=== PATIENT | male | born 1965 | race Caucasian/White ===

== ENCOUNTER 2018-08-08 19:39 | Inpatient (IN) | payer MEDICARE, MEDICAID ==
[~2018-08-08] VITALS: Ht 121.9 cm; Wt 117.5 kg
--- NOTE | ~2018-08-08 | CON ---
[facility] [address] [place] [address] CONSULTATION Name: ASHLEY ROBLES Room: [address] ADM IN M.R.#: [id number] Admission: 08/08/18 Attend Phys: Gary Herrera, Discharge: Date of : 61 Report #: [id number] THIS REPORT FOR: //name// CC: Crispin Herrera DATE OF SERVICE: 08/09/2018 TYPE OF REPORT: Nephrology consultation. CONSULTING PHYSICIAN: Gary Herrera M.D. REASON FOR NEPHROLOGY CONSULTATION: History of renal transplant, acute kidney injury, presenting with STEMI. CHIEF COMPLAINT: Chest pain. HISTORY OF PRESENT ILLNESS: This is a 53-year-old male who has a past medical history of bilateral lower extremity amputation, history of hypertension, history of end-stage renal disease, status post donor renal transplant. This was done in October of last year at [facility], he follows with [facility] with multiple MIs in the past with stent placements; came in with crushing chest pain, diagnosed with STEMI. 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 He was hypoxic this morning, needing 15 liters of oxygen, received one dose of Lasix IV. I's and O's cannot be documented accurately. His external catheter has been leaking and he is not wanting a Franklin catheter. He is drowsy but easily arousable. He has been hemodynamically stable. ALLERGIES: No known drug allergies. REVIEW OF SYSTEMS: As mentioned in history of present illness and now, he is not having any chest pain and he feels much better. He is just very tired and sleepy. Otherwise, 10-point review of systems are negative. PAST MEDICAL AND SURGICAL HISTORY: From what I can gather, he has been on peritoneal dialysis, had a peritoneal dialysis catheter. Then, he had hemodialysis with a left arm AV fistula and then he had a transplant donor in October of last year, history of coronary artery disease and history of hypertension. CURRENT HOME MEDICATIONS: Include calcitriol, sodium bicarbonate, prednisone 5 mg a day, amlodipine 10 mg a day, gabapentin 100 mg 3 times a day, tacrolimus 0.5 mg in the morning and 1 mg in the evening, carvedilol 12.5 mg b.i.d., pantoprazole 40 mg daily, tamsulosin 0.4 mg daily, pramipexole, atorvastatin, [place] [address] CONSULTATION Name: ASHLEY ROBLES Room: [address] IN ..#: [id number] Admission: 08/08/18 Attend Phys: Gary Herrera, Discharge: Date of : 61 Report #: [id number] escitalopram, mycophenolate sodium, Myfortic 360 mg twice a day, ticagrelor, fluticasone, calcium carbonate 1 gram t.i.d., albuterol, aspirin, nitroglycerin and magnesium oxide 400 mg twice a day. Not sure of the whole list of medications is accurate, but I did confirm his immunosuppressive medications with him and he also takes calcium and magnesium oxide as described above. He is on calcium carbonate 3 times a day. FAMILY HISTORY: That was reviewed from the patient's chart. No significant family history documented. SOCIAL HISTORY: He does smoke 1-1/2 packs a day. No history of chronic alcohol use documented. He uses alcohol socially. No illicit drug use documented. PHYSICAL EXAMINATION: VITAL SIGNS: Blood pressure is 120/56 and he is on 15 liters of oxygen with pulse ox of 96, respiratory rate is 21, pulse rate is 74 and he is afebrile. GENERAL: He is drowsy, but easily arousable. He is oriented x 3. HEAD AND EYES: Atraumatic and normocephalic. Mucous membranes are moist. NECK: There is no JVD. EARS, NOSE, AND THROAT: Mucous membranes are moist. CHEST: Bilaterally anteriorly coarse breath sounds, but no crackles or wheezing heard. CARDIOVASCULAR SYSTEM: S1 and S2 normal. No murmurs. ABDOMEN: Obese, otherwise soft and nondistended and bowel sounds are diminished. EXTREMITIES: Bilateral above-knee amputation and there is no edema noted. NEUROLOGICAL FUNCTION: Gross neurological function is intact. PSYCHIATRIC: Mood and affect seems to be normal. LABORATORY DATA: WBC is 14.8, hemoglobin is 11.9 and platelet count is 304. Creatinine was 1.5 and was 1.7 on presentation. AST 627. CK 5220. ALT 91. Troponin more than 200 this morning. Other labs were reviewed. Magnesium was 1.5. Calcium was 7.2. This was uncorrected calcium. IMAGING DATA: Chest x-ray was reviewed. ASSESSMENT: 1. Acute kidney injury, on chronic kidney disease; history of donor renal transplant in October of last year, acute kidney injury and is in the setting of acute myocardial infarction, creatinine 1.7 on presentation. He also has some rhabdomyolysis with a CK of 5220. 2. History of donor renal transplant in October of last year, on chronic immunosuppressive treatment, follows with Dr. Escalera's group, [facility]. 3. Elevated transaminases. [address] [address] CONSULTATION Name: ASHLEY ROBLES Room: [address] ADM IN M.R.#: [id number] Admission: 08/08/18 Attend Phys: Gary Herrera, Discharge: Date of : 61 Report #: [id number] 4. Hypomagnesemia. 5. Hypocalcemia. 6. ST-elevation myocardial infarction status post 5 stents placement, last night and it seems that there is plan for taking him back to the slab miller operator. We will be monitoring her for contrast-induced nephropathy. Cardiology notes are not in yet. 7. Acute respiratory failure. It seems like because of his body habitus, he does have sleep apnea. His chest x-ray also looks slightly wet. He has received one dose of Lasix this morning. PLAN: 1. Continue to monitor kidney function, check transplant kidney ultrasound. 2. I have reordered his immunosuppressive medications that he takes at home. 3. Magnesium and calcium were replaced. 4. Tacrolimus level to be checked tomorrow. 5. Maintain MAP of around 70. 6. Obtain records from his outpatient automatic shirring machine operator, but according to the patient, his creatinine mostly runs around 1.1. 7. Check a bladder scan q. 6 hours and if he is found to be retaining more than 300 mL of urine then he may need a Franklin. 8. We will follow him for any developing contrast-induced nephropathy. 9. We will continue to follow along with you. 10. Also, we would recommend probably pulmonary evaluation because I do not think that he needs BiPAP to help with his breathing. Discussed with the patient and the patient's nurse and more than 40 minutes of critical care time spent in chart review, examination, placing orders and care coordination. By: [id number] Lopez MD /nt
[2018-08-08 19:53] VITALS: BP 130/75
[2018-08-08 20:09] LABS: HEMATOCRIT 42.8 % (42.0-52.0); HEMOGLOBIN 13.9 gm/dL (14.0-18.0); MCH 27.5 pg (26.0-34.0); MCHC 32.4 g/dL (28.0-37.0); MCV 84.9 fL (80.0-100.0); MPV 7.8 fl. (7.2-11.1); NUCLEATED RBCS 0 /100WBC; PLATELET COUNT* 329 thou/uL (150-400); RBC 5.05 mil/uL (4.50-6.00); WBC 11.7 thou/uL (4.0-11.0)
[2018-08-08 20:15] LABS: APTT 27.4 Seconds (25.0-31.3); INR 0.9; PROTIME 9.5 Seconds (9.20-11.50)
[2018-08-08 20:19] VITALS: BP 110/68
[2018-08-08 20:19] LABS: ANION GAP 13 mmol/L (7-16); BUN 27 mg/dL (7-18); CHLORIDE 106 mmol/L (98-107); CO2 22 mmol/L (21-32); CREATININE 1.7 mg/dL (0.6-1.3); GLUCOSE 200 mg/dL (70-99); POTASSIUM 4.1 mmol/L (3.5-5.1); SODIUM 141 mmol/L (136-145)
[2018-08-08 20:27] LABS: ABSOLUTE LYMPHOCYTES 0.7 thou/uL (0.8-5.3); PLATELET ESTIMATE ADEQUATE
[2018-08-08 20:29] LABS: ALBUMIN 3.2 g/dL (3.4-5.0); ALKALINE PHOSPHATASE 112 U/L (46-116); CHOLESTEROL 148 mg/dL (<200); HDL CHOLESTEROL 31 mg/dL (>40); LDL CHOLESTEROL 61 mg/dL (<100); MAGNESIUM 1.6 mg/dL (1.8-2.4); SERUM ASSESSMENT Clear; SGOT 11 U/L (15-37); SGPT 20 U/L (30-65); TC:HDL 4.8 Ratio (Not establshd); TOTAL BILIRUBIN 0.3 mg/dL (<0.1-1.0); TRIGLYCERIDE 284 mg/dL (<150); TROPONIN-I LEVEL <0.06 ng/mL (<0.06); VLDL 57 mg/dL (<40)
[2018-08-09] VITALS (21 sets, daily range): BP systolic 111–180; BP diastolic 51–100
[2018-08-09] MEDS ORDERED: CALCITRIOL0.25 MCG PO (00:02)
[2018-08-09] MEDS ORDERED: ANTACID650 MG PO (00:03)
[2018-08-09] MEDS ORDERED: PREDNISONE 5 MG5 M1 PO (00:03)
[2018-08-09] MEDS ORDERED: AMLODIPINE BESY10 MG PO (00:04)
[2018-08-09] MEDS ORDERED: SULFAMETHOXAZO1 EACH PO (00:04)
[2018-08-09] MEDS ORDERED: GABAPENTIN 100100 MG PO (00:05)
[2018-08-09] MEDS ORDERED: TACROLIMUS1 MG PO (00:08)
[2018-08-09] MEDS ORDERED: CARVEDILOL12.5 MG PO (00:11)
[2018-08-09] MEDS ORDERED: PROTONIX40 M1 PO (00:14)
[2018-08-09] MEDS ORDERED: FLOMAX0.4 MG PO (00:30)
[2018-08-09] MEDS ORDERED: ESCITALOPRAM OX10 MG PO (00:31)
[2018-08-09] MEDS ORDERED: PRAMIPEXOLE DI0.5 MG PO (00:31)
[2018-08-09] MEDS ORDERED: LIPITOR80 MG PO (00:31)
[2018-08-09] MEDS ORDERED: MYFORTIC360 MG PO (00:32)
[2018-08-09] MEDS ORDERED: BRILINTA90 MG PO (00:32)
[2018-08-09] MEDS ORDERED: BREO ELLIPTA 11 EACH INH (00:35)
[2018-08-09] MEDS ORDERED: CALCIUM ANTACI200 MG PO (00:35)
[2018-08-09] MEDS ORDERED: ALBUTEROL2.5 MG/31 INH (00:36)
[2018-08-09] MEDS ORDERED: ASPIRIN81 M2 PO (00:36)
[2018-08-09] MEDS ORDERED: NITROGLYCERIN0.4 MG SUBLING (00:43)
[2018-08-09] MEDS ORDERED: PROGRAF1 MG PO (00:45)
[2018-08-09] MEDS ORDERED: TYLENOL EXTRA500 MG PO (00:46)
[2018-08-09] MEDS ORDERED: MAGOX 400400 MG PO (00:47)
--- NOTE | 2018-08-09 04:22 | NUR ---
ADMITTED TO ICU BED 6 AT 2251 FROM PILL MAKER, SEE ASSESSMENTS. PER PILL MAKER RN, ONE OF THE THREE SITES NEEDING STENTED COULD NOT BE PERFORMED DUE TO HIGH DOSE OF CONTRAST PT HAD RECEIVED. PT HAD KIDNEY TRANSPLANT 10/2017. SPOKE TO DR STEWART, INFORMED OF CONTRAST DOSE, ORDER RECEIVED TO RESTART PTS ANTIREJECTION DRUGS AND CONTINUE IVF AT 100ML/HR X8HR. PER PILL MAKER RN, DIFFICULTY OBTAINING ACCESS FOR CATH. 1ST ATTEMPT R GROIN, SITE OOZING BLOOD, CLEANED AND DRESSING APPLIED. 2ND ATTEMPT R RADIAL, TRANSPARENT DRESSING WITH DRIED DRAINAGE. 3RD ATTEMPT L GROIN, ARTERIAL LINE SET UP PER ORDERS, DRESSING WITH SMALL AMOUNT SS DRAINAGE. ORDER TO REMOVE SHEATH AT 0030, HOWEVER PT HAS BUE DIALYSIS FISTULAS AND BLE AKA, LIMITING NIBP SITES. PER VALARIE, COMPLIANCE ENGINEER [employer]ODUCTS, WILL LEAVE SHEATH IN PLACE FOR ART LINE BP MONITORING AND HAVE PILL MAKER RN REMOVE SHEATH DURING DAY. PT C/O CHEST PAIN 7-9/10 CONTINUOUSLY FROM TIME OF ARRIVAL ON UNIT, EKG OBTAINED. CALL PLACED TO DR STEWARD, STATED HE DOES NOT KNOW THE PATIENT AND THAT DR SANTANA SHOULD BE CALLED IF CP NOT CONTROLLED AFTER MORPHINE ADMINISTERED ORDERED. ONE DOSE GIVEN WITH PARTIAL RELIEF OF CP, PT ABLE TO SLEEP. APPROXIMATELY 0215 PT NOTED TO HAVE GRADUALLY DECREASING SAT TO 89-90% DESPITE INCREASE OF O2 TO 4L. LUNGS COARSE AND WHEEZES. PER DR COBIAN, LASIX IVP GIVEN X1. PT TITRATED TO 15L HFNC AT THIS TIME. PT INCONTINENT OF MODERATE AMOUNT URINE.
[2018-08-09 05:29] LABS: HEMATOCRIT 37.2 % (42.0-52.0); HEMOGLOBIN 11.9 gm/dL (14.0-18.0); MCH 27.4 pg (26.0-34.0); MCV 85.7 fL (80.0-100.0); MPV 7.9 fl. (7.2-11.1); RBC 4.34 mil/uL (4.50-6.00); RDW-CV 16.1 % (10.5-14.5); WBC 14.8 thou/uL (4.0-11.0)
[2018-08-09 06:02] LABS: ALBUMIN 2.8 g/dL (3.4-5.0); CALCIUM 7.2 mg/dL (8.5-10.1); CREATININE 1.5 mg/dL (0.6-1.3); POTASSIUM 4.5 mmol/L (3.5-5.1); TOTAL BILIRUBIN 0.4 mg/dL (<0.1-1.0); TOTAL PROTEIN 5.7 g/dL (6.4-8.2)
[2018-08-09 06:29] LABS: TROPONIN-I LEVEL > 200.00 ng/mL (<0.06)
--- NOTE | 2018-08-09 10:23 | EKG ---
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
--- NOTE | 2018-08-09 10:25 | EKG ---
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 : 1965 Requested By: Crispin Hector Order Number: [id number] Reading MD: Jeovanny Hsu Measurements Intervals Franklin Rate: 72 P: 51 TN: 244 QRS: -38 QRSD: 100 T: 59 QT: 424 QTc: 465 Interpretive Statements Sinus rhythm Prolonged TN interval Inferior infarct, acute (RCA) Probable anterolateral infarct, old Probable RV involvement, suggest recording right precordial leads Baseline wander in lead(s) V4 Electronically Signed On 08-09-2018 10:25:32 CDT by Jeovanny Hsu [email or web address] <ELECTRONICALLY SIGNED> By: Jeovanny Hsu MD, FACC 08/09/18 1025 2351 2351 Jeovanny Hsu MD, [facility] /EPI
--- NOTE | 2018-08-09 10:28 | EKG ---
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
--- NOTE | 2018-08-09 13:01 | NUR ---
Nutrition: pt with class III morbid obesity, however also noted to have Bilat AKA. Hx of kidney transplant, HD. Albumin 2.8, RFT's elevated. S/p multiple stent placements. Pt reviewed during ICU rounds this am, was on BIPAP, did not take breakfast. Assess at mild nutrition risk.
--- NOTE | 2018-08-09 16:06 | 2DMMODE ---
[place] [address] 2 D/M-MODE ECHOCARDIOGRAM Name: ASHLEY ROBLES Room: 006[facility] IN [facility]#: [id number] Admission: 08/08/18 Attend Phys: Gary Adhikari Discharge: Date of : 61 Date of Service: 08/09/18 1606 Report #: [id number] THIS REPORT FOR: //name// APPROVED REPORT Study performed: 08/09/2018 14:41:38 EXAM: Comprehensive 2D, Doppler, and color-flow Echocardiogram Patient Location: In-Patient Room #: 006 Status: routine BSA: 1.77 HR: 80 bpm BP: 149/62 mmHg Rhythm: NSR Other Information Study Quality: Technically Difficult Technically limited study due to body habitus, poor endocardial definition. Indications Acute IN 2D Dimensions IVSd: 18.02 (7-11mm) LVOT Diam: 22.78 (18-24mm) LVDd: 49.27 mm PWd: 14.30 (7-11mm) LVDs: 33.02 (25-40mm) Aortic Root: 38.98 mm Aortic Valve AoV Peak Dewey.: 2.67 m/s AO Peak Gr.: 28.53 mmHg LVOT Max P.02 mmHg AO Mean Gr.: 18.20 mmHg LVOT Mean P.70 mmHg LVOT Max V: 0.87 m/s AO V2 VTI: 44.93 cm LVOT Mean V: 0.61 m/s MEL (VTI): 1.43 cm2 LVOT V1 VTI: 15.72 cm Left Ventricle The left ventricle is normal size. Moderate hypokinesis of the apical and inferior wall Moderate concentric left ventricular hypertrophy. Left ventricular systolic function is mildly decreased. LVEF is 45-50%. This study is not technically sufficient to allow evaluation of the LV [place] [address] 2 D/M-MODE ECHOCARDIOGRAM Name: MARGARETASHLEY STEVE Room: [address] IN .R.#: [id number] Admission: 08/08/18 Attend Phys: Gary Adhikari Discharge: Date of : 61 Date of Service: 08/09/18 1606 Report #: [id number] Right Ventricle The right ventricle is normal size. The right ventricular systolic function is normal. Atria The left atrium size is normal. The right atrium size is normal. Aortic Valve Mild aortic valve sclerosis. No aortic regurgitation is present. Mild aortic stenosis. Mitral Valve There is mitral annular calcification. There is no mitral valve regurgitation noted. No evidence of mitral valve stenosis. Tricuspid Valve Tricuspid valve is not well visualized. Trace tricuspid regurgitation. Unable to assess PA pressure. Pulmonic Valve Pulmonic valve is not well visualized. There is no pulmonic valvular regurgitation. Great Vessels Aortic root is mildly dilated. IVC is normal in size and collapses >50% with inspiration. Pericardium There is no pericardial effusion. <Conclusion> Moderate hypokinesis of the apical and inferior wall LVEF is 45-50%. Mild aortic stenosis. Moderate concentric left ventricular hypertrophy. <ELECTRONICALLY SIGNED> By: Jeovanny Hsu MD, [facility] 08/09/18 1606 1606 1606 Jeovanny Hsu MD, FACC /INF
--- NOTE | 2018-08-09 16:21 | CARD ---
[address] [address] CARDIAC CATH REPORT Name: ASHLEY ROBLES Room: [address] IN M.R.#: [id number] Admission: 08/08/18 Attend Phys: Gary Herrera, Discharge: Date of : 61 Report #: [id number] THIS REPORT FOR: //name// APPROVED REPORT Study performed: 08/08/2018 19:48:28 Patient Details Patient Status: ED Room #: The patient is a 53 year-old male Event Personnel Crispin Hector Asset Protection Greeter, Mary Carmen Benito RN RN, Cullen Ariza Langston, Anthony ARRT (R) Monitor Procedures Performed GRACY Place w/wo Plasty Single CIRC, GRACY Place w/wo Plasty Single RCA Indication STEMI (>0 to less than or equal to 6 hours), Dyspnea Risk Factors Obesity, Peripheral Vascular Disease, Chronic Lung DiseaseHypercholesterolemia, Coronary Artery DiseaseHypertension, Tobacco History (), Dialysis Previous Procedures/Diagnoses Previous PCI, Previous MT Procedure Narrative A 6fr Ultimum Sheath sheath was inserted into the left femoral artery. Coronary angiography was performed using coronary diagnostic catheters. The right coronary system was accessed and visualized with a Diagnostic JR4` catheter. The left coronary system was accessed and visualized with a Diagnostic JL4 catheter. The patient tolerated the procedure well and there were no complications associated with the procedure. Sheath was sutured in to be pulled at a later time. There was difficulty in accessing his arterial system due to history of PVD with bilateral AKA, obesity, chronic renal disease with AV fistulas in both upper extremities. Intraoperative Conscious Sedation Fentanyl [address] [facility] [address] [place] [address] CARDIAC CATH REPORT Name: ASHLEY ROBLES Room: [address] IN [facility].#: [id number] Admission: 08/08/18 Attend Phys: Gary Herrera, Discharge: Date of : 61 Report #: [id number] No Sedation Given Fluoro Time: 35.1 minutes Dose: DAP [id number] cGycm2 6544 mGy Contrast Type and Amount: Visipaque 500 ml Coronary Angiography The patient's coronary anatomy is co- dominant. Diagnostic Cath Left Main This is a patent vessel, with no flow-limiting lesions. LAD The LAD is a moderate size caliber vessel, traversing the anterior wall and terminating at the apex. There is mild diffuse disease in the midsegment. Diagonal 1 This is a moderate size caliber vessel, patent with mild disease. Circumflex This is a codominant vessel with a severe stenosis of 90% in the proximal segment with a filling defect. This stenosis is at the bifurcation of the first OM. OM1 There are multiple stents in the proximal and mid segments of this vessel. There is a total occlusion within the stents. The distal segment is a small-caliber vessel and is filled via collateral circulation. OM2 This is a patent vessel, with no flow-limiting lesions. OM3 This is a patent vessel, with no flow-limiting lesions. Right Coronary The RCA has multiple stents in the mid and distal segments. There is a total occlusion in the distal RCA stents. Left Ventriculography Left Ventriculography was not performed. Hemodynamics The aortic pressure is 140/65 mmHg with a mean of 71 mmHg. PCI Technique Lesion Anticoagulation was achieved with Angiomax. Patient was preloaded with Angiomax IV 16 ml. Percutaneous coronary intervention was performed on the distal right coronary artery. The lesion stenosis prior to intervention was 100% with LUCINDA 0 flow. A 6F JR 4.0 Guide Catheter was used to engage the ostium. A [email or web address]: Luge Wire 180 Interventional Guidewire was used to cross the lesion. BALLOON DILATION A Balloon catheter Trek RX 2.5 X 12 [place] [address] CARDIAC CATH REPORT Name: ASHLEY ROBLES Room: [address] IN [facility]#: [id number] Admission: 08/08/18 Attend Phys: Gary Herrera, Discharge: Date of : 61 Report #: [id number] 10.00atm for 11seconds. Additional Inflation: 10.00atm for 10seconds. Additional Inflation: 12.00atm for 14seconds. STENT DEPLOYMENT A drug-eluting stent Xience Fabby 2.24Z04ys was inserted and inflated up to 20.00atm for 16seconds. POST STENT DEPLOYMENT BALLOON DILATION A Balloon catheter NC Trek RX 3.25 X 12 was inserted and inflated up to 20.00atm for 13seconds. Additional Inflation: 20.00atm for 9seconds. Additional Inflation: 20.00atm for 12seconds. Final angiography reveals 5 % stenosis with LUCINDA 3 flow. STENT DEPLOYMENT A drug-eluting stent Xience Fabby 3.0X18mm was inserted and inflated up to 18.00atm for 21seconds. Additional Inflation: 8.00atm for 12seconds. PCI Technique Lesion 2 Percutaneous Coronary Intervention was performed on the proximal right coronary artery. Patient was preloaded with Angiomax IV 16 ml. Percutaneous coronary intervention was performed on the proximal right coronary artery. A 6F JR 4.0 Guide Catheter was used to engage the ostium. A IG: Luge Wire 180 Interventional Guidewire was used to cross the lesion. Balloon Dilation A Balloon catheter Trek RX 3.0 X 15 was inserted and inflated up to 14.00atm for 12seconds. Additional Inflation: 18.00atm for 13seconds. Stent Deployment A drug-eluting stent Xience Fabby 3.03A27lv was inserted and inflated up to 20.00atm for 13seconds. Comments While attempting to pass a stent into the original occlusion in the distal segment of the RCA, there was evidence for dissection in the proximal segment from the guide catheter. The dissection was flow-limiting, requiring placement of overlapping stents in the proximal and ostial RCA. PCI Technique Lesion Anticoagulation was achieved with Angiomax. Patient was preloaded with Angiomax IV 16 ml. Percutaneous coronary intervention was [address] [address] CARDIAC CATH REPORT Name: ASHLEY ROBLES Room: 006-[facility] IN M.R.#: [id number] Admission: 08/08/18 Attend Phys: Gary Arias Javier, Discharge: Date of : 61 Report #: [id number] performed on the proximal right coronary artery. A 6F JR 4.0 Guide Catheter was used to engage the ostium. A IG: Luge Wire 180 Interventional Guidewire was used to cross the lesion. STENT DEPLOYMENT A drug-eluting stent Xience Fabby 4.0X15mm was inserted and inflated up to 18atm for 13seconds. The stent was placed at the ostium of the RCA. PCI Technique Lesion 3 Percutaneous Coronary Intervention was performed on the proximal circumflex artery segment. Patient was preloaded with Angiomax IV 16 ml. Percutaneous coronary intervention was performed on the proximal circumflex artery segment. A 6FR XB 3.5 100CM Guide Catheter was used to engage the ostium. A IG: Luge Wire 180 Interventional Guidewire was used to cross the lesion. Balloon Dilation A Balloon catheter Trek RX 3.0 X 12 was inserted and inflated up to 14.00atm for 17seconds. Additional Inflation: 14.00atm for 11seconds. Stent Deployment A drug-eluting stent Xience Fabby 3.83R87dg was inserted and inflated up to 12.00atm for 13seconds. Additional Inflation: 18.00atm for 9seconds. Post Stent Deployment Balloon Dilation A Balloon catheter NC Trek RX 3.5 X 8 was inserted and inflated up to 18.00atm for 17seconds. Final angiography reveals 5 % stenosis with LUCINDA 3 flow. Conclusion 1. Successful insertion of drug-eluting stents into the total occlusion in the RCA. 2. Successful insertion of a drug-eluting stent into the proximal left circumflex artery. 3. There is a total occlusion in the stents in OM1. The distal OM1 is a small-caliber vessel and is filled via collateral circulation. Recommend medical therapy. 4. There [place] [address] CARDIAC CATH REPORT Name: ASHLEY ROBLES Room: [address] IN M.R.#: [id number] Admission: 08/08/18 Attend Phys: Gary Herrera, Discharge: Date of : 61 Report #: [id number] 5. Recommend dual antiplatelet therapy and aggressive risk factor management. <ELECTRONICALLY SIGNED> By: Crispin Hector MD 08/09/18 1620 1620 1620Crispin Hector MD /INF
--- NOTE | 2018-08-09 17:20 | NUR ---
PHONE NUMBER FOR PT'S OUTPATIENT [facility] GIVEN TO [facility]. ATTEMPTED TO CALL BUT THE OFFICE WAS CLOSED. SPOKE WITH [facility] AFTER HOUR SERVICE UNIT OPERATOR [employer] THAT TOOK ALL OF THE PATIENT'S INFO. INSTRUCTED TO CALL BACK WITH MEDICAL RECORD NUMBER SO WE CAN REQUEST LAST OFFICE NOTES AND LABS. PT WAS UNSURE WHICH DOCTOR HE VISITS WITH, HE SAYS HE HAS SEEN ALL OF THEM. PHONE CALL WAS PLACED FOR DR. EVY SANCHEZ MD. THIS INFORMATION WAS REPORTED TO THE ONCOMING NURSE. PHONE NUMBER: [phone]
--- NOTE | 2018-08-09 19:53 | NUR ---
PT ASSESSMENT CHARTED. VSS THROUGHOUT THE DAY. CATH SITES C,D&I. BRUISING IN BOTH GROIN SITES. PT VERY DROWSY THIS MORNING AND HARD TO KEEP AWAKE. PT ON 15L HIGH FLOW. SWITCHED TO BIPAP FOR A FEW HOURS AND PT WAS MORE ALERT, EATING WITHOUT DIFFICULTY. PT PLACED ON 6L NC AFTER BIPAP TAKEN OFF AND APPEARS TO BE TOLERATING WELL. PAIN RATED 6/10 GENERALIZED RELIEVED WITH PRN PAIN MEDICATION. NO OTHER COMPLAINTS. PT LIKES TO SIT UP IN BED AND REFUSES TURNS. UROLOGY CONSULT PUT IN FOR CATHETER PLACEMENT. ATTEMPT X2 THIS MORNING TO PLACE BY NURSING STAFF. 18 GEORGIAN COUDE INSERTED AND IS DRAINING DARK YELLOW URINE.
[2018-08-10 04:59] LABS: ALBUMIN 2.7 g/dL (3.4-5.0); CALCIUM 7.3 mg/dL (8.5-10.1); CREATININE 1.5 mg/dL (0.6-1.3); DIRECT BILIRUBIN 0.1 mg/dL (<0.1-0.3); MAGNESIUM 1.9 mg/dL (1.8-2.4); TOTAL BILIRUBIN 0.4 mg/dL (<0.1-1.0); TOTAL PROTEIN 5.9 g/dL (6.4-8.2)
--- NOTE | 2018-08-10 08:09 | NUR ---
VSS. PT HAS DENIED CHEST PAIN THROUGH THE NIGHT. PT C/O SEVERE PAIN AT URINARY CATHETER. ORDER OBTAINED TO RESTART HOME FLOMAX DOSE, START PRN PYRIDIUM, AND APPLY LIDOCAINE JELLY ALL OF WHICH WERE DONE ORDERED WITH PARTIAL RELIEF. AT 0600 PT STATED THAT HE COULD NOT TAKE THE PAIN ANY LONGER AND WANTED THE CATHETER REMOVED OR HE WOULD REMOVE IT HIMSELF. DR GRACE PAGED AT 0600. COMPLETE BED BATH GIVEN WHILE AWAITING RETURN CALL. AT 0645 PT AGAIN STATED HE COULD NOT TAKE THE PAIN ANY LONGER, CATHETER REMOVED BY THIS RN AFTER WHICH PT REPORTED IMMEDIATE RELIEF. RETURN CALL RECEIVED FROM DR GRACE AT 0745, INFORMED OF EVENTS AND REMOVAL OF CATHETER, NO NEW ORDERS.
--- NOTE | 2018-08-10 09:47 | CON ---
[address] [address] CONSULTATION Name: ASHLEY ROBLES Room: [address] IN M.R.#: [id number] Admission: 08/08/18 Attend Phys: Gary Herrera, Discharge: Date of : 61 Report #: [id number] THIS REPORT FOR: //name// CC: Crispin Herrera DATE OF SERVICE: 08/08/2018 TYPE OF REPORT: Cardiology consultation. INSTITUTION: [facility]. INDICATION: Chest pains. HISTORY OF PRESENT ILLNESS: This is a 53-year-old gentleman presenting with acute onset of substernal chest pain less than 1 hour prior to presentation in the ER. The patient developed sudden chest pains, dizziness and dyspnea and 911 was called. Upon EMS arrival, an ECG revealed ST elevation on his ECG and a STEMI activation was called. He denies any history of fever, nausea or vomiting. He has had prior MIs with multiple stents. He has got a history of peripheral vascular disease with remote history of bilateral AKA. He has also had end-stage renal disease, on hemodialysis but underwent a renal transplant about a year ago at [facility]. He usually gets all of his medical care at [facility] in [facility]. History of hypertension. He has also chronic tobacco use, longstanding. PAST MEDICAL HISTORY: As above. MEDICATIONS: None. MEDICATIONS: Please see the MAR for full list. SOCIAL HISTORY: Continues to smoke one and half pack of cigarettes per day. FAMILY HISTORY: Unremarkable. REVIEW OF SYSTEMS: Unobtainable. PHYSICAL EXAMINATION: VITAL SIGNS: Blood pressure is 110/60 and heart rate is 95 beats per minute. GENERAL APPEARANCE: This is an overweight male, in mild distress. HEENT: Normocephalic and atraumatic. Oral mucosa moist. NECK: [place] [address] CONSULTATION Name: ASHLEY ROBLES Room: [address]#: [id number] Admission: 08/08/18 Attend Phys: Gary Herrera, Discharge: Date of : 61 Report #: [id number] LUNGS: Clear to auscultation. CARDIAC: Regular rate and rhythm. S1 and S2 positive. ABDOMEN: Protuberant, soft and nontender. EXTREMITIES: Bilateral AKA. RADIOLOGICAL DATA: ECG reveals sinus rhythm with ST-elevation in the inferolateral leads. LABORATORY VALUES: Pending. ASSESSMENT AND PLAN: 1. Acute inferolateral myocardial infarction. The patient was given heparin, aspirin and nitroglycerin in the Emergency Room. The plan is to take the patient emergently to the Cardiac Medical Administrative Technician. 2. Hypertension, continue the same medications. 3. Tobacco use, complete smoking cessation is advised. 4. Hypercholesterolemia, continue statin. 5. History of renal transplant, we will need to resume his transplant medications. Obtain a Nephrology consultation. <ELECTRONICALLY SIGNED> By: Crispin Hector MD 08/10/18 0947 [id number] Hector MD /nt
[2018-08-10 09:53] VITALS: BP 132/34
[2018-08-10 10:00] VITALS: BP 170/50
--- NOTE | 2018-08-10 11:14 | NUR ---
ASSUMED PT CARE 0730. PT DENIES PAIN. NO CHEST PAIN. VSS. LEFT SUBCLAVIAN DRESSING DRAINING BLOOD AND BLOOD CLOTS FORMING. PT TO BE DISCHARGED. RECEIVED OKAY TO DC CENTRAL LINE. MONITORING PT'S ABILITY TO VOID CATHETER DC'D AT 0645. PER UROLOGY PT MAY HAVE HAD BLADDER SPASMS AT NIGHT. REFER TO EMAR FOR PRN MEDICATION FOR BLADDER SPASMS. PT EDUCATED NEEDS TO VOID PRIOR TO DISCHARGE.
--- NOTE | 2018-08-10 11:15 | NUR ---
CHART REVIEWED, SPOKE WITH PATIENT. PT LIVES ALONE, IS NORMALLY INDEP AT HOME. HE HAS BILATERAL AKA'S. HE USED TO BE ON DIALYSIS BUT NOW HAS A TRANSPLANT. 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 HE DRIVES. PT'S EX- AND FAMILY ARE SUPPORTIVE. PT DENIES ANY DISCHARGE NEEDS, HE IS HOPING HE CAN GO HOME TODAY.
--- NOTE | 2018-08-10 11:37 | EKG ---
[place] [address] ELECTROCARDIOGRAM REPORT Name: ASHLEY ROBLES Room: [address] ADM IN M.R.#: [id number] Admission: 08/08/18 Attend Phys: Gary Herrera, Discharge: Date of : 61 Report #: [id number] THIS REPORT FOR: //name// [facility] Test Date: 2018-08-10 Test Time: 08:50:05 Pat Name: ASHLEY ROBLES Department: Room: [address] Gender: M Manager Endoscopy: : 1965 Requested By: Jeovanny Hsu Order Number: [id number] Reading MD: Donta Weston Measurements Intervals [place] Rate: 72 P: 60 WY: 230 QRS: -25 QRSD: 105 T: 255 QT: 468 QTc: 513 Interpretive Statements Sinus rhythm Prolonged [place]Y interval Inferior infarct, recent Abnrm T, consider ischemia, anterolateral lds Minimal ST elevation, anterior leads Prolonged QT interval Compared to ECG 08/09/2018 08:31:04 ST (T wave) deviation now present Prolonged QT interval now present Myocardial infarct finding still present Possible ischemia still present Electronically Signed On 08-10-2018 11:37:02 CDT by Donta Weston [email or web address] <ELECTRONICALLY SIGNED> By: Donta Weston MD, [facility] 08/10/18 1137 0850 0850 Donta Weston MD, [facility] /EPI
[2018-08-10 12:24] VITALS: BP 156/64
[2018-08-10 13:05] VITALS: BP 156/64
--- NOTE | 2018-08-10 13:16 | NUR ---
PT VOIDING 200 ML OF URINE. POST VOID RESIDUAL PREFORMED AND PT HAD 52 MLS. NEPHROLOGY OKAY FOR DISCHARGE. PT TO HAVE LABS IN 5 DAYS. PT COMMUNICATED UNDERSTANDING OF LABS AND REORTED HE ALREADY HAD ORDERS/SCRIPT FOR LABS. CARDIOLOGY OKAY FOR DISCHARGE.
[2018-08-10 13:45] LABS: CALCIUM 7.6 mg/dL (8.5-10.1); CREATININE 1.6 mg/dL (0.6-1.3); MAGNESIUM 1.9 mg/dL (1.8-2.4); POTASSIUM 4.5 mmol/L (3.5-5.1)
--- NOTE | 2018-08-10 15:09 | NUR ---
CENTRAL LINE DC'D. DRESSING APPLIED. AFTER 3 HOURS, DRESSING OOZING WITH SEROSANGUINOUS BLOOD. PT SKIN CLEANED, PRESSURE HELD FOR 5 MINUTES, BLEEDING STOPPED AND NEW DRESSING APPLIED TO LEFT UPPER CHEST WHERE CENTRAL LINE PULLED. IV IN RIGHT HAND DC'D. PRESSURE APPLIED UNTIL BLEEDING STOPPED. ALL CONSULTS OKAY WITH DISCHARGE. PT EDUCATION ON DISCHARGE INSTRUCTION. PRINTED POST ANGIOGRAM INSTRUCTIONS GIVEN TO PT. PT EDUCATED ON POST ANGIOGRAM INSTRUCTIONS. PT COMMUNICATES UNDERSTANDING.
--- NOTE | 2018-08-10 15:53 | NUR ---
PT LEFT SHORTS BEHIND. PT CALLED AND NOTIFIED. PT STATED HE WILL COME BACK LATER THIS EVENING TO ADJUNCT ART HISTORY INSTRUCTOR. SHORTS PLACED IN SECRUITY AND PT NOTIFIED LOCATION OF SHORTS.
== END 2018-08-10 16:30 | disposition home or self-care (01) | DRG 246 ==
LOC: M.ERS 19:39 → M.CL 19:39 → M.TBA-CV 20:17 → M.ICU 20:17 → M.ERS 20:20 → M.ICU 22:38
PROVIDERS: Internal Medicine; Internal Medicine Cardiovascular Disease; Personal Emergency Response Attendant; ADMIT Family Medicine
PROC: 4A023N7 Measurement of Cardiac Sampling and Pressure, Left Heart, Percutaneous Approach (ICD-10-PCS; principal; 2018-08-08)
PROC: 027137Z Dilation of Coronary Artery, Two Arteries with Four or More Drug-eluting Intraluminal Devices, Percutaneous Approach (ICD-10-PCS; principal; 2018-08-08)
PROC: B2151ZZ Fluoroscopy of Left Heart using Low Osmolar Contrast (ICD-10-PCS; principal; 2018-08-08)
PROC: B2111ZZ Fluoroscopy of Multiple Coronary Arteries using Low Osmolar Contrast (ICD-10-PCS; principal; 2018-08-08)
DX: T82.897A Other specified complication of cardiac prosthetic devices, implants and grafts, initial encounter (principal); I21.19 ST elevation (STEMI) myocardial infarction involving other coronary artery of inferior wall; I50.43 Acute on chronic combined systolic (congestive) and diastolic (congestive) heart failure; N17.0 Acute kidney failure with tubular necrosis; J96.01 Acute respiratory failure with hypoxia; I13.0 Hypertensive heart and chronic kidney disease with heart failure and stage 1 through stage 4 chronic kidney disease, or unspecified chronic kidney disease; Z94.0 Kidney transplant status; Z68.45 Body mass index [BMI] 70 or greater, adult; M62.82 Rhabdomyolysis; E11.22 Type 2 diabetes mellitus with diabetic chronic kidney disease; E11.51 Type 2 diabetes mellitus with diabetic peripheral angiopathy without gangrene; I25.10 Atherosclerotic heart disease of native coronary artery without angina pectoris; R33.9 Retention of urine, unspecified; Y83.8 Other surgical procedures as the cause of abnormal reaction of the patient, or of later complication, without mention of misadventure at the time of the procedure; K21.9 Gastro-esophageal reflux disease without esophagitis; E78.00 Pure hypercholesterolemia, unspecified; R74.0 Nonspecific elevation of levels of transaminase and lactic acid dehydrogenase [LDH]; E83.42 Hypomagnesemia; E83.51 Hypocalcemia; F17.210 Nicotine dependence, cigarettes, uncomplicated; N18.9 Chronic kidney disease, unspecified; E66.9 Obesity, unspecified; I11.0 Hypertensive heart disease with heart failure; I25.2 Old myocardial infarction; Z95.5 Presence of coronary angioplasty implant and graft; Z89.612 Acquired absence of left leg above knee; Z89.611 Acquired absence of right leg above knee; Z79.82 Long term (current) use of aspirin; Y92.89 Other specified places as the place of occurrence of the external cause